=== PATIENT | male | born 2000 | race Caucasian/White ===

== ENCOUNTER 2020-10-16 19:12 | Emergency (ER) | payer BC, SELFPAY ==
[2020-10-16 19:13] VITALS: BP 146/91; PULSE 73; RESP 14; TEMP 36.6; O2SAT 97; BMI 25.8
--- NOTE | 2020-10-16 19:44 | HMH.EDUTC ---
[facility] – [place] Disposition Clinical Impression: Viral syndrome, Exposure to COVID-19 virus Disposition: Home, Self-Care Condition on Discharge: Good Instructions: Preventing the Spread of Coronavirus Discharge Instructions Additional Instructions: Drink plenty of fluids. Take tylenol for pain or fever. Return if you begin to have difficulty breathing. Follow up with your regular doctor. GO TO THE ER FOR ANY WORSENING SYMPTOMS Referrals: PCP,No [Primary Care Provider] - Time of Disposition: 19:49 Medical Decision Making - Medical Records Medical records reviewed: No: I reviewed the patient's medical records. - Elijah Inquiry Pt receiving controlled substance: No Vital Signs: 10/16/20 19:13 10/16/20 19:52 Temperature 98 F 98.1 F Temperature Source Oral Pulse Rate 73 Pulse Rate [Right] 73 Respiratory Rate 14 19 Blood Pressure 146/91 H Blood Pressure [Right Arm] 146/91 H Blood Pressure Mean [Right Arm] 109 02 Sat by Pulse Oximetry 97 Oxygen Delivery Method Room Air Orders (Tests/Meds): ORDERS Category Date Time Status Covid-19 Nasal PCR Sendout P&[facility] Stat Lab 10/16/20 19:14 Ordered [facility] [place] HPI - General Stated complaint: covid test Time Seen by Provider: 10/16/20 19:44 Description of Symptoms (Recalled from Triage Doc. by RN): pt request COVID test pt c/o dale, cough HEENT Symptoms (Recalled from RN notes): Yes Resp Symptoms (Recalled from RN notes): Yes Skin Symptoms (Recalled from RN notes): No MS Symptoms (Recalled from RN notes): No Functional Status (Recalled from RN notes): wnl - History of Present Illness Provider Complaint: He states that he has had a head ache and a dry cough since yesterday. His employer sent him to be tested because several of his coworkers have covid. - Related Data Allergies Allergy/AdvReac Type Severity Reaction Status Date / Time No Known Allergies Allergy Unverified 09/14/17 15:03 - Worker's Comp Is this a Worker's Comp case?: No [facility] History - Hepatitis A Screen Drug use history?: No High risk sexual behaviors?: No History of sexually transmitted infection?: No Currently employed?: No Childcare worker?: No Do you have indoor plumbing?: Yes Do you have electricity?: Yes Attestation statement:: This patient has been screened for Hepatitis A risk factors. I have reviewed the patient's past medical history: Yes ROS Obtained: Yes All systems reviewed & no additional complaints - Constitutional Constitutional: Reports system reviewed and no additional complaints, except as docu - Eyes Eyes: Reports system reviewed and no additional complaints, except as docu - ENT Ears, Nose, Mouth, and Throat: Reports system reviewed and no additional complaints, except as docu - Cardiovascular Cardiovascular: Reports system reviewed and no additional complaints, except as docu - Respiratory Respiratory: Reports system reviewed and no additional complaints, except as docu - Gastrointestinal Gastrointestingal: Reports: system reviewed and no additional complaints, except as docu Physical Exam - General General appearance: alert, in no apparent distress - Head Head exam: atraumatic, normocephalic, normal inspection - Eye Eye exam: Present: normal appearance, PERRL, EOMI - ENT ENT exam: Present: normal exam, normal oropharynx, mucous membranes moist, TM's normal bilaterally, normal external ear exam - Neck Neck exam: Present: normal inspection, full ROM, trachea midline. Absent: meningismus, lymphadenopathy - Chest Chest inspection: Present: normal inspection, symmetric chest wall rise. Absent: tenderness - Respiratory Respiratory exam: Present: normal lung sounds bilaterally. Absent: respiratory distress - Cardiovascular Cardiovascular exam: Present: regular rate, normal rhythm. Absent: JVD - Abdominal Exam Abdominal exam: Present: soft, normal bowel sounds. Absent: distention, tenderness, guarding - Extremiti
[2020-10-16 19:52] VITALS: BP 146/91; PULSE 73; RESP 19; TEMP 36.7; O2SAT 99
[2020-10-18 10:57] LABS: Covid-19 Nasal PCR Sendout P&C Negative
== END 2020-10-16 19:52 | disposition home or self-care (01) ==
PROVIDERS: Emergency Provider Nurse Practitioner Family
DX: Z20.822 Contact with and (suspected) exposure to COVID-19 (principal); B34.9 Viral infection, unspecified
CPT/HCPCS: 99202; G0463; U0004